=== PATIENT | female | born 1940 | race Caucasian/White ===

== ENCOUNTER 2017-05-26 14:45 | Emergency (ER) | payer MEDICARE ==
[~2017-05-26] VITALS: Ht 172.7 cm; Wt 60.0 kg
[2017-05-26 14:50] VITALS: BP 163/81
[2017-05-26] MEDS ORDERED: FLUORESCEIN OPHTHALMIC 1 MG STRIP RIGHTEYE ONE (15:30)
[2017-05-26] MEDS ORDERED: PROPARACAINE OPHTH 0.5%, 15ML RIGHTEYE ONE (15:30)
[2017-05-26] MEDS ORDERED: PROPARACAINE OPHTH 0.5%, 15ML ONE (15:40)
[2017-05-26] MEDS ORDERED: FLUORESCEIN OPHTHALMIC 1 MG STRIP ONE (15:40)
[2017-05-26] MEDS ORDERED: PLEASE ENTER ALLERGIES MC SCH ×2 (16:00)
== END 2017-05-26 17:34 | disposition home or self-care (01) ==
LOC: ED 16:41
DX: H53.121 Transient visual loss, right eye (principal); H43.391 Other vitreous opacities, right eye; Z04.9 Encounter for examination and observation for unspecified reason; Z90.710 Acquired absence of both cervix and uterus; M19.90 Unspecified osteoarthritis, unspecified site
CPT/HCPCS: 36415; 70450; 85610; 99285